=== PATIENT | male | born 1975 | race American Indian/Alaskan Native ===

== ENCOUNTER 2017-12-02 22:18 | Emergency (ER) | payer OTHER ==
[2017-12-02 22:45] VITALS: RESP 18; O2SAT 99
--- NOTE | 2017-12-02 23:41 | C.PDOC ---
History Of Present Illness 42 y/o male with PMHx significant for HIV, presents with complaints of intermittent left lower abdominal pain for the past several days. Patient has had similar symptoms in the past, and was diagnosed with diverticulitis. Also had colonoscopy at that time with no significant findings. Reports current pain is similar to past episodes. Denies any fever, chills, nausea, vomiting, or bright red blood per rectum. Time Seen by Provider: 12/02/17 23:15 Chief Complaint (Nursing): Abdominal Pain History Per: Patient History/Exam Limitations: no limitations Onset/Duration Of Symptoms: Days Current Symptoms Are (Timing): Still Present Location Of Pain/Discomfort: LLQ Past Medical History Reviewed: Historical Data, Nursing Documentation, Vital Signs Vital Signs: Last Vital Signs Temp 97.7 F 12/02/17 23:49 Pulse 64 12/02/17 23:49 Resp 18 12/02/17 23:49 BP 142/85 12/02/17 23:49 Pulse Ox 99 12/02/17 23:49 - Medical History PMH: Asthma, Diverticulitis, HIV (normal CD4, undetectable viral load last blood work), Hypercholesterolemia Denies: Chronic Kidney Disease Other Surgeries: Rectal surgery Family History: States: Unknown Family Hx - Social History Hx Tobacco Use: No Hx Alcohol Use: No Hx Substance Use: No - Immunization History Hx Tetanus Toxoid Vaccination: Yes Hx Influenza Vaccination: Yes Hx Pneumococcal Vaccination: Yes Review Of Systems Except As Marked, All Systems Reviewed And Found Negative. Constitutional: Negative for: Fever, Chills Gastrointestinal: Positive for: Abdominal Pain. Negative for: Nausea, Vomiting , Diarrhea, Hematochezia, Rectal Pain Physical Exam - Physical Exam Appears: Non-toxic, No Acute Distress Skin: Normal Color, Warm, Dry Head: Atraumatic, Normacephalic Eye(s): bilateral: Normal Inspection, PERRL, EOMI Nose: Normal Oral Mucosa: Moist Neck: Normal ROM, Supple Chest: Symmetrical Cardiovascular: Rhythm Regular, No Murmur, Other (S1, S2 are wnl) Respiratory: Normal Breath Sounds, No Rales, No Rhonchi, No Wheezing Gastrointestinal/Abdominal: Soft, Tenderness (Mild left lower quadrant discomfort on palpation), No Mass, No Rebound Extremity: Bilateral: Atraumatic, Normal Color And Temperature (with no clubbing , cyanosis, or edema), Normal ROM Pulses: Left Dorsalis Pedis: Normal, Right Dorsalis Pedis: Normal Neurological/Psych: Oriented x3, Normal Speech ED Course And Treatment O2 Sat by Pulse Oximetry: 99 (RA) Pulse Ox Interpretation: Normal Medical Decision Making Medical Decision Making: Impression: Diverticulitis Plan: Will treat empirically with Cipro and Flagyl. Patient stable for d/c home. Advised to return to the ER for any worsening pain or fever. Disposition Counseled Patient/Family Regarding: Diagnosis, Need For Followup, Rx Given - Disposition Referrals: [facility] [Outside] Disposition: HOME/ ROUTINE Disposition Time: 23:39 Condition: GOOD Prescriptions: Ciprofloxacin HCl [Cipro] 500 mg PO BID #14 tablet Metronidazole [Flagyl] 500 mg PO TID #21 tablet Forms: [employer] (Thai) Print Language: ITALIAN - POA Present On Arrival: None - Clinical Impression Clinical Impression: Diverticula of colon - Scribe Statement The provider has reviewed the documentation as recorded by the Scribe (Jenni Brown) Provider Attestation: All medical record entries made by the Issaibe were at my direction and personally dictated by me. I have reviewed the chart and agree that the record accurately reflects my personal performance of the history, physical exam, medical decision making, and the department course for this patient. I have also personally directed, reviewed, and agree with the discharge instructions and disposition.
[2017-12-02 23:50] VITALS: BP 142/85; PULSE 64; TEMP 97.7
== END 2017-12-02 23:50 | disposition home or self-care (01) ==
LOC: C.ER 22:18
DX: K57.30 Diverticulosis of large intestine without perforation or abscess without bleeding (principal)